=== PATIENT | male | born 1975 | race Hispanic/Latino ===

== ENCOUNTER 2017-09-22 15:11 | Observation (INO) | payer BC ==
[2017-09-22 16:11] LABS: #Eosinphils 0.1 thou/uL (0.0-0.7); #Lymphocytes 1.5 thou/uL (1.20-3.40); #Monocytes 0.5 thou/uL (0.11-0.59); #Neutrophils 7.7 thou/uL (1.40-6.50); %Basophils 0.5 % (0.0-1.0); %Eosinophils 1.4 % (0.0-10.0); %Lymphocytes 15.1 % (21.0-51.0); %Monocytes 5.1 % (0.0-10.0); %Neutrophils 77.9 % (42.0-75.0); Hemoglobin 9.2 g/dL (14.0-18.0); Mean Corpuscular HGB CONC 33.8 g/dL (32.0-36.0); Mean Corpuscular Hemoglobin 30.4 pg (27.0-31.0); Mean Corpuscular Volume 89.9 fl (80.0-94.0); Mean Platelet Volume 8.2 fL (7.4-10.4); Platelet Count 264 thou/uL (130-400); RBC Distribution Width 13.1 % (11.5-14.5); Red Blood Cell (RBC) Count 3.04 mill/uL (4.70-6.10); White Blood Cell (WBC) Count 9.8 thou/uL (4.8-10.8)
[2017-09-22 16:31] LABS: ALT (SGPT) 14 U/L (8-55); AST (SGOT) 10 U/L (5-34); Albumin 3.2 g/dL (3.5-5.0); Alkaline Phosphatase 53 U/L (40-150); Anion Gap 12 mmol/L (10-20); BUN (Urea Nitrogen) 35 mg/dL (8.9-20.6); Bilirubin, Total 0.2 mg/dL (0.2-1.2); CK (CPK) 86 U/L (30-200); Calc. Creatinine Clearance 0 mL/min (70-130); Calcium 8.1 mg/dL (7.8-10.44); Carbon Dioxide 25 mmol/L (22-29); Chloride 105 mmol/L (98-107); Estimated GFR-MDRD Greater than 90; Glucose 125 mg/dL (70-105); Potassium 4.3 mmol/L (3.5-5.1); Protein, Total 5.2 g/dL (6.0-8.3); Sodium 138 mmol/L (136-145)
--- NOTE | 2017-09-22 16:31 | RAD ---
CHEST 1 VIEW: Date: 09/22/17 HISTORY: Chest pain. COMPARISON: 06/08/15. FINDINGS: Cardiac silhouette is magnified by projection. Shallow inspiration accentuates pulmonary markings. Me diastinum is midline. There is no lobar consolidation or evidence of pneumothorax. 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 IMPRESSION: No active cardiopulmonary abnormalities are demonstrated. POS: [facility]
[2017-09-22 16:36] LABS: CKMB 1.4 ng/mL (0-6.6); Troponin I 0.011 ng/mL (< 0.028)
[2017-09-22] MEDS ORDERED: Nitroglycerin 2% Ointment 1 INCH/1 GM Packet ONE (18:19)
[2017-09-22] MEDS ORDERED: Nitroglycerin 2% Ointment 1 INCH/1 GM Packet TOP PRN (19:01)
[2017-09-22 19:22] LABS: Troponin I Less than 0.010 ng/mL (< 0.028)
[2017-09-22 20:50] VITALS: BMI 47.1
[2017-09-22] MEDS: Famotidine 20 MG TAB PO SCH (20:55)
--- NOTE | 2017-09-22 22:34 | HP ---
PRIMARY CARE PHYSICIAN: No PCP. CHIEF COMPLAINT: Chest pain and palpitations. HISTORY OF PRESENT ILLNESS: The patient is a very pleasant 42-year-old obese male, who initia lly presented to the hospital with complaints of substernal chest pain, which started yesterday. The patient stated that yesterday he was sitting and watching TV, he had a burning-like sensation around his chest area, which was pretty intense. The patient thought that it was most likely heartburn and his chest pain went away without any intervention. The patient stated that this morning he went to work and started just not feeling well overall. The patient then stated that at work. 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 The patient then stated that he just felt very na useous, did not feel well. At that time, he hoped that after eating maybe he would feel better, so h e did eat some food; however, symptoms did not improve. The patient then started having significant amount of diaphoresis with chest pain and nausea and almost to the point that the patient was about t o pass out; however, he did not pass out. The patient states that he does drink about 2-3 Monsters a day. The patient stated that he had a Mon ster today for breakfast and had another energy drink today. The patient denies any palpitations tod ay. ALLERGIES: The patient has no known drug allergies. PAST MEDICAL HISTORY: He has no medical history. PAST SURGICAL HISTORY: The patient denies any surgical history. SOCIAL HISTORY: The patient drinks socially according to him. He has a history of smoking; however, currently does not smoke. Denies any drug use. FAMILY HISTORY: The patient states that his mother had triple bypass and his brother had a pacemaker inserted; however, he is not aware of the age when they underwent those procedures. REVIEW OF SYSTEMS: The following complete review of systems was negative, unless otherwise mentioned in the HPI or below: Constitutional: Weight loss or gain, ability to conduct usual activities. Skin: Rash, itching. Eyes: Double vision, pain. ENT/Mouth: Nose bleeding, neck stiffness, pain, tenderness. Cardiovascular: Palpitations, dyspnea on exertion, orthopnea. Respiratory: Shortness of breath, wheezing, cough, hemoptysis, fever or night sweats. Gastrointestinal: Poor appetite, abdominal pain, heartburn, nausea, vomiting, constipation, or diarr hea. Genitourinary: Urgency, frequency, dysuria, nocturia. Musculoskeletal: Pain, swelling. Neurologic/Psychiatric: Anxiety, depression. Allergy/Immunologic: Skin rash, bleeding tendency. PHYSICAL EXAMINATION. VITAL SIGNS: Temperature of 99.1, blood pressure 109/72, pulse of 111, 23, respiration. GENERAL: The patient is awake, alert, oriented x3, does not in apparent distress. CARDIOVASCULAR: S1, S2 present. No murmurs, rubs or gallops. RESPIRATORY: Clear to auscultation. No rhonchi, wheezes noted. ABDOMEN: Soft, nontender. Bowel sounds are present x2. Mild epigastric pain on palpation EXTREMITIES: No extremity edema. LABORATORY DATA: Labs are as the following. Patient's initial troponin was negative. EKG indicates sinus tachycardia. WBCs of 9.8, hemoglobin of 9.2, hematocrit of 89.9. Sodium of 138, potassium of 4.3, bicarbonate of 25, BUN of 35. ASSESSMENT AND PLAN: The patient is a very pleasant 42-year-old male who initially presented to the hospital with chest pain. 1. Chest pain. The patient's initial troponins are negative. EKG no acute changes. However, given his risk factors. The patient is an obese male with substernal chest pain with some significant fam maya history. We will undergo stress test with perfusion in morning. The patient also stated that he got very diaphoretic and dizzy. May consider doing an echocardiogram. We will trend troponins x3. We will admit the patient on telemetry. 2. Anemia. The patient is found to have a hemoglobin of 9.2 with MCV of 89.9. We will check some i reginald studies on patient. 3. Sinus tachycardia. The patient has mild tachycardia between one teens. At this time, I am not g oing to prescribe any beta blockers. This could be possibly secondary to dehydration versus the eliza ent taking in Monsters or drinking energy drinks. We will continue to monitor overnight, if the eliza ent continues to be tachycardic, may consider putting on a low dose beta-kassi. We will also check a lipid level in morning.
[2017-09-22 23:20] LABS: Troponin I Less than 0.010 ng/mL (< 0.028)
[2017-09-23 02:21] LABS: CKMB 0.8 ng/mL (0-6.6); Troponin I Less than 0.010 ng/mL (< 0.028)
[2017-09-23 05:38] LABS: Iron 30 ug/dL (65-175); Iron Binding Capacity, Total 211 mcg/dL (261-462)
[2017-09-23 05:39] LABS: Cardiac Risk 5.5 (Less than 4.5)
[2017-09-23 05:41] LABS: CKMB 0.9 ng/mL (0-6.6); Troponin I Less than 0.010 ng/mL (< 0.028)
[2017-09-23] MEDS ORDERED: Dextrose 5 % And 0.9 % NaCl 1,000 ML IV SCH (07:00)
[2017-09-23] MEDS: Famotidine 20 MG TAB PO SCH (08:51)
[2017-09-23] MEDS ORDERED: Aspirin 81 mg Enteric Coated Tablet PO SCH (09:00)
[2017-09-23] MEDS ORDERED: FLU VACC QS2017-18 36 mo. & older 0.5 ML SYRINGE IM ONE (09:00)
[2017-09-23 12:46] VITALS: BP 107/55; TEMP 98.2
--- NOTE | 2017-09-23 13:59 | NM ---
NUCLEAR MEDICINE CARDIAC STRESS STUDY WITH EJECTION FRACTION: HISTORY: Chest pain. Stress-only examination was performed using 33 mCi 99m Technetium sestamibi. This shows a fairly nor mal distribution of the radiopharmaceutical. No signs of ischemia. WALL MOTION: There is symmetric contractility to the ventricle. LEFT VENTRICULAR EJECTION FRACTION: The calculated left ventricular ejection fraction was 63%. IMPRESSION: Unremarkable stress study. No evidence of ischemia. POS: [facility]
[2017-09-23] MEDS ORDERED: Acetaminophen 325 MG TAB PO SCH (14:45)
--- NOTE | 2017-09-24 07:06 | DIS ---
DATE OF ADMISSION: 09/22/2017 DATE OF DISCHARGE: 09/23/2017 PRIMARY CARE PHYSICIAN: No PCP. HOSPITAL COURSE: The patient is a very pleasant 42-year-old male who initially presented to the hosp ital with complaints of chest pain and diaphoresis. The patient was found to have some sinus tachyca rdia. EKG no acute changes. Troponins were negative. The patient underwent a stress test, which in dicated an EF of 55%. The patient had a nuclear medicine cardiac stress test with ejection fraction of 53%. The patient was noted to have some apneic moments. He was asked to follow up with his PCP f or sleep study as an outpatient. The patient was also educated on weight loss. The patient stated t hat he will follow up with his primary care doctor as an outpatient. MEDICATIONS: None were prescribed. PROCEDURES: The patient had a stress test. CONSULTATIONS: None.
--- NOTE | 2017-09-24 19:03 | EKG ---
Test Reason : CP Blood Pressure : / mmHG Vent. Rate : 109 BPM Atrial Rate : 109 BPM P-R Int : 126 ms QRS Dur : 080 ms QT Int : 330 ms P-R-T Axes : 029 -02 036 degrees QTc Int : 444 ms Sinus tachycardia Otherwise normal ECG Confirmed by LEANDRO CAICEDO, VIKASH ([id number]), general expeditor AUBREY HOLT ([id number]) on 09/24/2017 7:02:31 PM Referred By: Confirmed By:VIKASH REEVES MD
== END 2017-09-23 15:31 | disposition home or self-care (01) ==
LOC: ERS 15:11 → 2SW 20:15
PROVIDERS: ADMIT Internal Medicine; ATTEND Internal Medicine
DX: R07.2 Precordial pain (principal); R00.0 Tachycardia, unspecified; D64.9 Anemia, unspecified; Z79.82 Long term (current) use of aspirin; Z87.891 Personal history of nicotine dependence
CPT/HCPCS: 36415; 71045; 78452; 80053; 80061; 82553; 83540; 83550; 84443; 84484; 85025; 90471; 90682; 93005; 93017; 94760; 96360; 96361; A9500; G0008; G0378; J0153; Q2036